=== PATIENT | male | born 1980 | race Caucasian/White ===

== ENCOUNTER 2018-01-26 19:21 | Inpatient (IN) | payer SELFPAY ==
[~2018-01-26] VITALS: Ht 170.2 cm; Wt 67.3 kg
[2018-01-26 19:30] VITALS: BP 122/76
--- NOTE | 2018-01-26 19:40 | NUR ---
PT TAKEN TO BED 11
--- NOTE | 2018-01-26 19:42 | NUR ---
PATIENT PRESENTS TO ED WITH SHAKINESS. PT STATES HE HAS DIZZINESS AND NOTED WITH WEIGHT LOSS . DENIES N/V/D; SKIN IS PINK/WARM/DRY; AAOX3 WITH EVEN AND STEADY GAIT WITH ASSISTANCE FROM FAMILY MEMBER; LUNGS CLEAR BL; HR EVEN AND REGULAR; PT DENIES ANY FEVER, CP, SOB, OR COUGH AT THIS TIME; PATIENT STATES PAIN OF 0/10 AT THIS TIME; VSS; PATIENT POSITIONED FOR COMFORT; HOB ELEVATED; BEDRAILS UP X2; BED DOWN. ER MD MADE AWARE OF PT STATUS.
[2018-01-26 20:13] LABS: APPEARANCE,URINE CLEAR (CLEAR); BILIRUBIN,URINE NEGATIVE (NEGATIVE); BLOOD, URINE NEGATIVE (NEGATIVE); COLOR,URINE YELLOW (YELLOW); LEUKOCYTE ESTERASE ,URINE NEGATIVE (NEGATIVE); NITRITE, URINE NEGATIVE (NEGATIVE); PH,URINE 5.5 (5.0-9.0); UGLUCOSE NEGATIVE (NEGATIVE)
[2018-01-26 20:23] LABS: BARBITURATE, URINE NEG. ng/ml (NEG <=200); BENZODIAZEPINE, URINE NEG. ng/mL (NEG <=200); CANNABINOID, URINE NEG. ng/mL (NEG <=50); COCAINE, URINE NEG. ng/mL (NEG <=300); OPIATE, URINE NEG. ng/mL (NEG <=2000); PHENCYCLIDINE SCREEN,URINE NEG. ng/mL (NEG <=25)
[2018-01-26 20:25] LABS: BASOPHILS # (AUTO) 0.3 K/uL (0.00-0.22); BASOPHILS % (AUTO) 4.3 % (0.0-2.0); EOSINOPHILS # (AUTO) 0.1 K/uL (0-0.4); EOSINOPHILS % (AUTO) 1.6 % (0.0-4.0); HEMATOCRIT 52.5 % (36-52); HEMOGLOBIN 17.3 g/dL (12.0-18.0); LYMPHOCYTES # (AUTO) 1.9 K/uL (2.0-11.5); LYMPHOCYTES % (AUTO) 25.4 % (20.5-51.1); MEAN CORPUSCULAR HEMOGLOBIN 30 pg (27-31); MEAN CORPUSCULAR HGB CONC 33 g/dL (33-37); MEAN CORPUSCULAR VOLUME 91 fL (80-94); MONOCYTES # (AUTO) 0.8 K/uL (0.8-1.0); MONOCYTES % (AUTO) 11.2 % (1.7-9.3); NEUTROPHILS # (AUTO) 4.5 K/uL (1.8-7.7); NEUTROPHILS % (AUTO) 57.5 % (42.2-75.2); PLATELET COUNT (AUTO) 242 K/uL (140-450); RED CELL DISTRIBUTION WIDTH 13.2 % (11.6-13.7); WHITE BLOOD COUNT (AUTO) 7.6 K/uL (4.8-10.8)
[2018-01-26 20:28] LABS: ALBUMIN 3.9 g/dL (3.4-5.0); ANION GAP 17.5 (8-16); CARBON DIOXIDE 22.4 mmol/L (21-32); CREATININE 1.2 mg/dL (0.7-1.3); POTASSIUM 3.9 mmol/L (3.5-5.1); TOTAL BILIRUBIN 1.6 mg/dL (0.0-1.0)
--- NOTE | 2018-01-26 21:09 | NUR ---
Ultrasound at bedside.
--- NOTE | 2018-01-26 21:15 | NUR ---
NASAL SWAB DONE TO BOTH NARES TO SCREEN FOR THE FLU.
[2018-01-26] MEDS ORDERED: ACETAMINOPHEN 325 MG TAB PO PRN (23:25)
[2018-01-26] MEDS ORDERED: ONDANSETRON 4 MG/2 ML VIAL IM/IVP PRN (23:25)
[2018-01-26] MEDS ORDERED: HYDROcodone/APAP 7.5/325 MG 1 TAB PO PRN (23:25)
[2018-01-26] MEDS ORDERED: MORPHINE SULFATE 4 MG/ML SYR IVP PRN (23:25)
[2018-01-26] MEDS ORDERED: DOCUSATE SODIUM 100 MG GELCAP PO PRN (23:25)
[2018-01-26] MEDS ORDERED: MECLIZINE 25 MG TAB PO PRN (23:35)
[2018-01-26 23:55] LABS: CHOL/HDL RATIO 7.8 (1-4.5); FREE T4 (FREE THYROXINE) 1.18 ng/dL (0.76-1.46); MAGNESIUM 2.6 mg/dL (1.8-2.4); PHOSPHORUS 4.1 mg/dL (2.5-4.9); THYROID STIMULATING HORMONE 2.87 uIU/mL (0.34-3.74)
--- NOTE | 2018-01-27 00:30 | NUR ---
Patient will be admitted to care of TELEMETRY Admited to room 120A. Belongings list completed. Report to BERRY HERNANDEZ.
[2018-01-27 00:40] VITALS: BP 116/71
--- NOTE | 2018-01-27 00:40 | NUR ---
ADMITTED PATIENT TO THE TELE UNIT, PATIENT AWAKE ALERT ORIENTED X4, BUT BECAME CONFUSED SOMETIMES. IV PATENT AND INTACT, FLUSHED WITH 10ML NS. TELE MONITOR PLACED ON PATIENT, PLAN OF CARE DISCUSSED, PATIENT VERBALIZED UNDERSTANDING, CALL LIGHT WITHIN REACH, SAFETY MEASURE ENSURED, WILL CONTINUE TO MONITOR.
[2018-01-27] MEDS ORDERED: LACTULOSE 20 GM/30 ML UDC PO SCH (01:00)
[2018-01-27] MEDS: NACL 0.9% 1,000 ML IV SCH ×3 (01:05→20:42)
--- NOTE | 2018-01-27 01:20 | NUR ---
DR. WOODS AT THE BEDSIDE AND EXAMINED THE PATIENT.
[2018-01-27] MEDS ORDERED: LORazepam 1 MG TAB PO PRN (01:30)
[2018-01-27 04:00] VITALS: BP 126/76
[2018-01-27 04:10] LABS: MEAN CORPUSCULAR VOLUME 91 fL (80-94)
[2018-01-27 04:29] LABS: CARBON DIOXIDE 24.9 mmol/L (21-32); CREATININE 1.2 mg/dL (0.7-1.3); POTASSIUM 3.9 mmol/L (3.5-5.1)
[2018-01-27 04:34] LABS: MAGNESIUM 2.4 mg/dL (1.8-2.4); PHOSPHORUS 4.3 mg/dL (2.5-4.9)
--- NOTE | 2018-01-27 04:51 | NUR ---
IV OUT, TIP INTACT, NO ACTIVE BLEEDING NOTED AT THE IV SITE. STARTED NEW IV 22G ON LT FOREARM, PATIENT TOLERATED WELL.
[2018-01-27 06:06] LABS: HEMATOCRIT 50.8 % (36-52); HEMOGLOBIN 16.7 g/dL (12.0-18.0); MEAN CORPUSCULAR HEMOGLOBIN 30 pg (27-31); MEAN CORPUSCULAR HGB CONC 33 g/dL (33-37); PLATELET COUNT (AUTO) 240 K/uL (140-450); RED BLOOD CELL COUNT(AUTO) 5.61 MIL/uL (4.20-6.10); RED CELL DISTRIBUTION WIDTH 13.4 % (11.6-13.7); WHITE BLOOD COUNT (AUTO) 8.1 K/uL (4.8-10.8)
[2018-01-27 06:19] LABS: LYMPHOCYTES % (MANUAL) 35 % (20-46); MONOCYTES % (MANUAL) 9 % (5-12)
--- NOTE | 2018-01-27 07:30 | NUR ---
RECEIVED PT REPORT FROM SHIP SCALER RN. PT IS AWAKE, ALERT, ORIENTED X4, BUT RESPONSE IS SLOW. IV NOTED TO THE LEFT FA, DRY, PATENT AND INTACT,INFUSING WELL. ON TELE. DENIES PAIN, NAUSEA AND VOMITING. PLAN OF CARE DISCUSSED, PATIENT VERBALIZED UNDERSTANDING, CALL LIGHT WITHIN REACH, SAFETY MEASURE ENSURED, WILL CONTINUE TO MONITOR.
[2018-01-27 08:00] VITALS: BP 120/78
[2018-01-27] MEDS: MULTIVITAMIN 1 TAB PO SCH (09:26)
[2018-01-27] MEDS: FOLIC ACID 1 MG TAB PO SCH (09:28)
[2018-01-27] MEDS: THIAMINE 100 MG TAB PO SCH (09:29)
[2018-01-27] MEDS: chlordiazePOXIDE 25 MG CAP PO SCH ×3 (09:29→17:56)
--- NOTE | 2018-01-27 09:30 | NUR ---
ORTHOSTATIC DONE. SUPINE 120/78 HR 87, SITTING, 123/77 HR99, STANDING 104/73 HR101. PT UP WITH PHYSICAL THERAPY.
--- NOTE | 2018-01-27 10:00 | NUR ---
PT IS SLEEPING, AUNT AT BEDSIDE. NO ACUTE DISTRESS AT THIS TIME.
[2018-01-27 12:00] VITALS: BP 106/59
--- NOTE | 2018-01-27 12:00 | NUR ---
PT HAD LUNCH, AUNT IS FEEDING THE PT. NO S/S OF ACUTE DISTRESS.
--- NOTE | 2018-01-27 13:00 | NUR ---
PT DENIED PAIN AT THIS TIME. NO S/S OF ACUTE DISTRESS.
[2018-01-27 16:00] VITALS: BP 103/67
--- NOTE | 2018-01-27 16:19 | NUR ---
PT HAS BEEN SEEN BY DR MORIN.
--- NOTE | 2018-01-27 17:40 | NUR ---
PT IS EATING DINNER, NO TREMORS NOTED. NO SOB AND DENIES PAIN.
--- NOTE | 2018-01-27 18:00 | NUR ---
PT IS SLEEPING AT THIS TIME. BREATHING EVEN AND UNLABORED. NO TREMORS NOTED.
[2018-01-27] MEDS ORDERED: LACTOBACILLUS RHAMNOSUS GG 1 EACH CAP PO SCH (18:15)
--- NOTE | 2018-01-27 19:30 | NUR ---
ASSUMED CARE OF PATIENT, ASLEEP EASILY AROUSABLE. FAMILY AT BEDSIDE. NO COMPLAINS. CALL LIGHT WITHIN REACH.
--- NOTE | 2018-01-27 19:40 | NUR ---
ENDORSED PT TO CENTRAL SERVICE TECH RN. PT IS IN STABLE CONDITION.
[2018-01-27] MEDS ORDERED: LEVOFLOXACIN 500 MG/D5W PREMIX 100 ML IV SCH (20:00)
--- NOTE | 2018-01-27 20:00 | NUR ---
CARE BOARD UPDATED. PLAN OF CARE DISCUSSED WITH PATIENT AND FAMILY MEMBER, NEEDS REINFORCEMENT. CALL LIGHT WITHIN REACH. VITAL SIGNS STABLE. AFEBRILE.
[2018-01-27 22:12] VITALS: BP 118/69
[2018-01-28 00:06] VITALS: BP 101/57
--- NOTE | 2018-01-28 00:08 | NUR ---
ASLEEP WELL, EASILY AROUSABLE. NO COMPLAINS. AFEBRILE. VITAL SIGNS STABLE. CALL LIGHT WITHIN REACH.
[2018-01-28 04:31] VITALS: BP 119/69
--- NOTE | 2018-01-28 04:32 | NUR ---
ASSISTED TO BRP. NO COMPLAINS. VITAL SIGNS STABLE. AFEBRILE. CALL LIGHT WITHIN REACH.
[2018-01-28] MEDS: NACL 0.9% 1,000 ML IV SCH (05:05)
[2018-01-28 06:04] LABS: HEMATOCRIT 44.1 % (36-52); HEMOGLOBIN 14.4 g/dL (12.0-18.0); MEAN CORPUSCULAR HEMOGLOBIN 30 pg (27-31); MEAN CORPUSCULAR HGB CONC 33 g/dL (33-37); MEAN CORPUSCULAR VOLUME 93 fL (80-94); PLATELET COUNT (AUTO) 234 K/uL (140-450); RED BLOOD CELL COUNT(AUTO) 4.76 MIL/uL (4.20-6.10); RED CELL DISTRIBUTION WIDTH 13.1 % (11.6-13.7); WHITE BLOOD COUNT (AUTO) 8.6 K/uL (4.8-10.8)
[2018-01-28 06:18] LABS: T4 (THYROXINE) 8.4 ug/dL (4.5-12.0)
[2018-01-28 06:40] LABS: ANION GAP 9.1 (8-16); CARBON DIOXIDE 27.7 mmol/L (21-32); CREATININE 1.1 mg/dL (0.7-1.3); POTASSIUM 3.8 mmol/L (3.5-5.1)
[2018-01-28 06:47] LABS: MAGNESIUM 2.1 mg/dL (1.8-2.4); PHOSPHORUS 3.2 mg/dL (2.5-4.9)
[2018-01-28 06:58] LABS: EOSINOPHILS % (MANUAL) 2 % (0-4); LYMPHOCYTES % (MANUAL) 32 % (20-46); MONOCYTES % (MANUAL) 10 % (5-12)
--- NOTE | 2018-01-28 07:18 | NUR ---
ENDORSED CARE AT BEDSIDE WITH JESSICA RN, PATIENT IN STABLE CONDITION.
--- NOTE | 2018-01-28 07:30 | NUR ---
RECEIVED PT REPORT FROM FLAGMAN RN. PT IS SLEEPING, AROUSED TO NAME. ORIENTEDX4. NO TREMORS NOTED AT THIS TIME. IV NOTED TO THE LEFT FA, 22G, DRY, PATENT AND INTACT, INFUSING WELL. ON TELE. DENIES PAIN, NAUSEA AND VOMITING. NO OTHER COMPLAINS. PLAN OF CARE DISCUSSED, PATIENT VERBALIZED UNDERSTANDING, CALL LIGHT WITHIN REACH, SAFETY MEASURE ENSURED, WILL CONTINUE TO MONITOR.
[2018-01-28 08:00] VITALS: BP 96/51
[2018-01-28 08:23] LABS: HEPATITIS A ANTIBODY IGM Negative (Negative); HEPATITIS B CORE AB TOTAL Negative (Negative); HEPATITIS B SURFACE ANTIBODY Non Reactive (.); HEPATITIS B SURFACE ANTIGEN Negative (Negative)
[2018-01-28] MEDS: MULTIVITAMIN 1 TAB PO SCH (08:25)
[2018-01-28] MEDS: THIAMINE 100 MG TAB PO SCH (08:25)
[2018-01-28] MEDS: FOLIC ACID 1 MG TAB PO SCH (08:25)
[2018-01-28] MEDS: chlordiazePOXIDE 25 MG CAP PO SCH ×2 (08:26→12:54)
--- NOTE | 2018-01-28 08:35 | NUR ---
PT IS MORE AWAKE AND ALERT AT THIS TIME. PT IS CHATTING WITH FAMILY MEMBERS. NO S/S OF ACUTE DISTRESS. PT HAS TAKEN ALL HIS SCHEDULED MEDS.
[2018-01-28] MEDS ORDERED: LACTOBACILLUS RHAMNOSUS GG 1 EACH CAP PO SCH (09:00)
--- NOTE | 2018-01-28 11:35 | NUR ---
PATIENT HAS BEEN SCREENED AND CATEGORIZED MODERATE NUTRITION RISK. PATIENT WILL BE SEEN WITHIN 3-5 DAYS OF ADMISSION. 01/29/18 - 01/31/[address]
[2018-01-28 11:59] VITALS: BP 105/71
--- NOTE | 2018-01-28 12:50 | NUR ---
ENDORSEMENT RECEIVED FROM JESSICA RN/ PATIENT IS SLEEPING COMFORTABLY. RESPIRATION EVEN, UNLABOR ON ROOM AIR. SKIN DRY AND WARM. IV PATENT AND INTACT. NO DISTRESS NOTED AT THIS TIME. CALL LIGHT WITHIN REACH
--- NOTE | 2018-01-28 12:54 | NUR ---
SPOKE TO HECTOR DOSS TO HOLD LIBRIUM DUE TO PENDING DISCHARGE.
[2018-01-28] MEDS ORDERED: LEVO750T2 PO (13:29)
[2018-01-28] MEDS ORDERED: ATI.5 PO (13:29)
[2018-01-28] MEDS ORDERED: LACT1.4C PO (13:29)
--- NOTE | 2018-01-28 14:49 | NUR ---
DISCHARGE INSTRUCTION WAS GIVEN AND EXPLAINED TO THE PATIENT. PATIENT VERBALIZED UNDERSTANDING. IV WAS REMOVED, CATHETER INTACT, NO ACTIVE BLEEDING SEEN, PATIENT TOLERATED WELL. ID BAND WAS REMOVED. ALL BELONGING WAS TAKEN WITH THE PATIENT. PATIENT IS STABLE AT THIS TIME Addendum: 01/28/18 at 1611 by Rissa Martino RN PATIENT WAS ESCORTED OUT BY STAFF AND FAMILY.
--- NOTE | 2018-01-28 17:06 | NUR ---
PHYSICAL THERAPY CO-SIGN The Physical Therapy Progress Notes documented by Disease Education Specialist have been reviewed. Reviewed/Co-Signed by: Gerri Gipson PT Documentation Done by: SHILPA NICHOLE PTA Addendum: 01/29/18 at 0909 by Gerri Gipson PT Amended: Links added.
== END 2018-01-28 16:00 | disposition home or self-care (01) | DRG 896 ==
LOC: MED 19:21 → MTU 23:26 → MMU 23:26
PROVIDERS: ADMIT Family Medicine; ATTEND Family Medicine
DX: F10.239 Alcohol dependence with withdrawal, unspecified (principal); N17.0 Acute kidney failure with tubular necrosis; G93.41 Metabolic encephalopathy; K70.40 Alcoholic hepatic failure without coma; Z60.2 Problems related to living alone; F17.210 Nicotine dependence, cigarettes, uncomplicated; K76.0 Fatty (change of) liver, not elsewhere classified; E83.41 Hypermagnesemia; E78.1 Pure hyperglyceridemia; E78.5 Hyperlipidemia, unspecified; K75.9 Inflammatory liver disease, unspecified; J32.0 Chronic maxillary sinusitis
CPT/HCPCS: 36415; 70450; 71045; 76705; 80048; 80053; 80305; 81003; 82140; 82150; 83036; 83690; 83735; 83880; 84100; 84436; 84439; 84443; 84479; 84484; 85025; 85610; 85730; 86704; 86706; 86708; 86709; 86803; 87081; 87340; 87804; 93005; 93880; 97110; 97116; 97140; 97530; 99285; G0482; J1956; J7030; Q0092